=== PATIENT | male | born 1970 | race Caucasian/White ===

== ENCOUNTER 2021-02-21 18:41 | Emergency (ER) | payer BC ==
[2021-02-21] MEDS ORDERED: HYDROcodone/APAP 5-325MG 1 EACH TAB PO STA (19:13)
--- NOTE | 2021-02-21 19:18 | ED ---
Lower Extremity Injury HPI - General Chief Complaint: Extremity Injury, Lower Stated Complaint: Cellulitis Time Seen by Provider: 02/21/21 18:59 Source: patient, RN notes reviewed Mode of arrival: ambulatory Limitations: no limitations - History of Present Illness Initial Comments: 50-year-old white male patient presents to the emergency room with complaints of bumping his right knee on a steel box at work 2 days ago. Patient states he did not break the skin, no puncture wound, but has had increased redness and swelling to anterior knee today. Patient states went to [employer] and was told to come to the emergency room for evaluation of cellulitis. Patient has no medical history, does not smoke, no medications on a daily basis. Patient stat es he's been taking NSAIDs with no relief. Patient denies any fevers, chills, nausea vomiting or diarrhea. MD Complaint: knee injury -: days(s) (2) Injury: Knee: Right Type of Injury: blunt (Hit his knee on box at work) Place: work Worsens With: movement, palpation Context: direct blow Associated Symptoms: swelling Treatments Prior to Arrival: NSAIDS - Related Data Home Medications Medication Instructions Recorded Confirmed Testosterone Cyp 100mg/Ml 100 mg SQ AGUILERA 02/21/21 02/21/21 Previous Rx's Medication Instructions Recorded Cephalexin [Keflex] 500 mg PO Q6HR #40 cap 02/21/21 HYDROcodone/APAP 5-325MG [[place] 1 tab PO Q4HR PRN 3 Days #18 tab 02/21/21 5-325] Ibuprofen [Motrin] 600 mg PO Q8HR PRN #30 tab 02/21/21 Sulfamethox-Tmp 800-160Mg [Bactrim 1 each PO Q12HR #20 tab 02/21/21 Ds] Allergies Allergy/AdvReac Type Severity Reaction Status Date / Time No Known Allergies Allergy Verified 02/21/21 19:56 Review of Systems ROS Statement: Those systems with pertinent positive or pertinent negative responses have been documented in the HPI. ROS Other: All systems not noted in ROS Statement are negative. Past Medical History Past Medical History: No Reported History History of Any Multi-Drug Resistant Organisms: None Reported Past Surgical History: Back Surgery Additional Past Surgical History / Comment(s): L4 , rt hand Past Psychological History: ADD/ADHD Smoking Status: Never smoker Past Alcohol Use History: Daily Past Drug Use History: None Reported General Exam Limitations: no limitations General appearance: alert, in no apparent distress Head exam: Present: atraumatic, normocephalic, normal inspection Eye exam: Present: normal appearance, PERRL, EOMI. Absent: scleral icterus, conjunctival injection, periorbital swelling ENT exam: Present: normal exam, normal oropharynx, mucous membranes moist Neck exam: Present: normal inspection, full ROM. Absent: tenderness, meningismus, lymphadenopathy Respiratory exam: Present: normal lung sounds bilaterally. Absent: respiratory distress, wheezes, rales, rhonchi, stridor Cardiovascular Exam: Present: regular rate, normal rhythm, normal heart sounds. Absent: systolic murmur, diastolic murmur, rubs, gallop, clicks, JVD GI/Abdominal exam: Present: soft, normal bowel sounds. Absent: distended, tenderness, guarding, rebound, rigid Right Knee exam: Present: tenderness, swelling, erythema, effusion, full knee extension. Absent: abrasion, laceration, ecchymosis, deformity, crepitus, dislocation Lower Leg exam: Present: normal inspection. Absent: tenderness, swelling, laceration, ecchymosis, deformity, crepitus, dislocation, erythema, palpable cord, Homans' sign Ankle exam: Present: normal inspection Neurovascular tendon exam: Present: no vascular compromise. Absent: pulse deficit, abnormal cap refill, extremity cold to touch, pallor, foot drop Course Vital Signs 02/21/21 18:44 Temperature 97.9 F Pulse Rate 92 Respiratory 20 Rate Blood Pressure 163/96 O2 Sat by Pulse 99 Oximetry Medical Decision Making - Medical Decision Making X-ray of the right knee shows no fracture, small suprapatellar joint effusion. WBC count is 5.6 with no elevation in neutrophils. Patient is afebrile. Cellulitis was marked with a skin marker, it is not circumferential. There are no open wounds. Case discussed with Dr. Spring. Patient given the option for admission or to try by mouth antibiotics at home. Patient opting to be di scharged and will try oral antibiotics. Requesting to have pain medication for home, states [place] does not help with the pain and neither does Motrin. Explained that if the pain is not controlled with these medications he should return to the emergency room. Patient agreeable to this plan and will also return for increased redness to the area outside of marker lines. - Lab Data Result diagrams: 02/21/21 19:33 Lab Results 02/21/21 Range/Units 19:33 WBC 5.6 (3.8-10.6) k/uL RBC 4.50 (4.30-5.90) m/uL Hgb 14.3 (13.0-17.5) gm/dL Hct 40.5 (39.0-53.0) % MCV 90.0 (80.0-100.0) fL MCH 31.8 (25.0-35.0) pg MCHC 35.3 (31.0-37.0) g/dL RDW 14.1 (11.5-15.5) % Plt Count 147 L (150-450) k/uL MPV 6.8 Neutrophils % 77 % Lymphocytes % 14 % Monocytes % 6 % Eosinophils % 1 % Basophils % 0 % Neutrophils # 4.3 (1.3-7.7) k/uL Lymphocytes # 0.8 L (1.0-4.8) k/uL Monocytes # 0.4 (0-1.0) k/uL Eosinophils # 0.1 (0-0.7) k/uL Basophils # 0.0 (0-0.2) k/uL Disposition Clinical Impression: Cellulitis of knee, right Disposition: HOME SELF-CARE Condition: Good Instructions (If sedation given, give patient instructions): Cellulitis (ED) Additional Instructions: Take medication as prescribed and follow-up with the primary care doctor in 1 week. Return to the emergency room with increased pain or increased redness and swelling outside of the marker lines. Prescriptions: Sulfamethox-Tmp 800-160Mg [Bactrim Ds] 1 each PO Q12HR #20 tab Cephalexin [Keflex] 500 mg PO Q6HR #40 cap Ibuprofen [Motrin] 600 mg PO Q8HR PRN #30 tab PRN Reason: Pain HYDROcodone/APAP 5-325MG [[place] 5-325] 1 tab PO Q4HR PRN 3 Days #18 tab PRN Reason: Pain Is patient prescribed a controlled substance at d/c from ED?: No Referrals: None,Stated [Primary Care Provider] - 1-2 days Time of Disposition: 21:55
[2021-02-21 20:08] LABS: Basophils % (A) 0 %; Eosinophils # (A) 0.1 k/uL (0-0.7); Eosinophils % (A) 1 %; HCT 40.5 % (39.0-53.0); HGB 14.3 gm/dL (13.0-17.5); Lymphocytes # (A) 0.8 k/uL (1.0-4.8); Lymphocytes % (A) 14 %; MCH 31.8 pg (25.0-35.0); MCHC 35.3 g/dL (31.0-37.0); Mean Platelet Volume 6.8; Monocytes # (A) 0.4 k/uL (0-1.0); Monocytes % (A) 6 %; Neutrophils # (A) 4.3 k/uL (1.3-7.7); Neutrophils % (A) 77 %; Platelet Count 147 k/uL (150-450); RDW 14.1 % (11.5-15.5); WBC 5.6 k/uL (3.8-10.6)
--- NOTE | 2021-02-21 20:16 | XR ---
EXAMINATION TYPE: XR knee 4V RT DATE OF EXAM: 02/21/2021 COMPARISON: NONE HISTORY: Pain and swelling from injury 3 days ago. Pain. TECHNIQUE: FINDINGS: No acute fracture. No dislocation. Joint spaces and alignment are maintained. Normal minera lization. Small suprapatellar joint effusion. IMPRESSION: 1. No acute fracture or dislocation. 2. Small suprapatellar joint effusion.
[2021-02-21] MEDS ORDERED: NALOXONE 0.4 MG/ML 1 ML VIAL IV PRN (20:44)
[2021-02-21] MEDS ORDERED: ACETAMINOPHEN TAB 325 MG TAB PO PRN (20:44)
[2021-02-21] MEDS ORDERED: HYDROmorphone 0.5 MG/0.5 ML SYRINGE IVP STA (20:50)
[2021-02-21 22:40] VITALS: BP 139/96; PULSE 89; RESP 18; TEMP 98.9
== END 2021-02-21 22:35 | disposition home or self-care (01) ==
LOC: EC 18:41
DX: L03.115 Cellulitis of right lower limb (principal); F90.9 Attention-deficit hyperactivity disorder, unspecified type; Z79.1 Long term (current) use of non-steroidal anti-inflammatories (NSAID)
CPT/HCPCS: 36415; 85025; 73564; 99284; 96374; J1170